=== PATIENT | female | born 1985 | race Caucasian/White ===

== ENCOUNTER 2018-04-06 15:34 | Emergency (ER) | payer MEDICAID ==
[~2018-04-06] VITALS: Ht 160 cm; Wt 96.3 kg
[2018-04-06 15:38] VITALS: BP 163/11
[2018-04-06] MEDS ORDERED: PENI250T2 PO (17:06)
== END 2018-04-06 17:14 | disposition home or self-care (01) ==
LOC: ER 15:35
DX: K04.7 Periapical abscess without sinus (principal); K02.9 Dental caries, unspecified; F15.90 Other stimulant use, unspecified, uncomplicated
CPT/HCPCS: 99283

== ENCOUNTER 2018-09-08 13:10 | Emergency (ER) | payer MEDICAID ==
[~2018-09-08] VITALS: Ht 162.6 cm; Wt 46.7 kg
[2018-09-08 13:16] VITALS: BP 140/99
[2018-09-08] MEDS ORDERED: GUAI120L55 PO (14:51)
[2018-09-08] MEDS ORDERED: BENZ-16 PO (14:51)
== END 2018-09-08 14:59 | disposition home or self-care (01) ==
LOC: ER 13:11
DX: J06.9 Acute upper respiratory infection, unspecified (principal); F15.90 Other stimulant use, unspecified, uncomplicated; Z79.899 Other long term (current) drug therapy
CPT/HCPCS: 99283